=== PATIENT | male | born 1970 | race Caucasian/White ===

== ENCOUNTER 2016-06-25 08:42 | Inpatient (IN) | payer BC, OTHER ==
[~2016-06-25] VITALS: Ht 185.4 cm; Wt 66.7 kg
--- NOTE | 2016-06-27 13:15 | NUR ---
PRE ADMISSION NOTE: 45 yo male presents to [facility] with Methamphetamine dependence. Pt states smokes "3-4 hits" every morning. Pt is alert and oriented X4. Color good, skin warm and dry. Respirations even and unlabored. B/P 110/67 P: 75 RR 18 Pulse OX: 97% T 98.2 Pt states used to drink, but now attends AA on a regular basis. NKA Skin intact.
[2016-06-27 13:45] VITALS: BP 110/67
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
[2016-06-27] MEDS: QUETIAPINE FUMARATE 25 MG TABLET PO SCH ×3 (14:44→21:00)
[2016-06-27] MEDS ORDERED: METHOCARBAMOL 750 MG TABLET PO PRN (15:00)
[2016-06-27] MEDS ORDERED: CLONIDINE HCL 0.1 MG TABLET PO PRN (15:00)
[2016-06-27] MEDS ORDERED: MAG HYDROX/AL HYDROX/SIMETH 30 ML LIQUID UDC PO PRN (15:00)
[2016-06-27] MEDS ORDERED: IBUPROFEN 600 MG TABLET PO PRN (15:00)
[2016-06-27] MEDS ORDERED: ACETAMINOPHEN 325 MG TABLET PO PRN (15:00)
[2016-06-27] MEDS ORDERED: DICYCLOMINE HCL 20 MG TABLET PO PRN (15:00)
[2016-06-27] MEDS ORDERED: MAGNESIUM HYDROXIDE 30 ML LIQUID UDC PO PRN (15:00)
[2016-06-27] MEDS ORDERED: HYDROXYZINE PAMOATE 25 MG CAPSULE PO PRN (15:00)
[2016-06-27] MEDS ORDERED: diphenhydrAMINE 50 MG CAPSULE PO PRN (15:00)
[2016-06-27] MEDS ORDERED: LOPERAMIDE HCL 2 MG CAPSULE PO PRN ×2 (15:00)
[2016-06-27] MEDS ORDERED: MIRALAX 17 GM POWD.PACK PO PRN (15:00)
[2016-06-27 15:13] LABS: *AMPHETAMINE, URINE POSITIVE (NEGATIVE); *BARBITURATE, URINE NEGATIVE (NEGATIVE); *CANNABINOID, URINE NEGATIVE (NEGATIVE); *COCCAINE, URINE NEGATIVE (NEGATIVE); *OPIATE, URINE NEGATIVE (NEGATIVE); *PHENCYCLIDINE SCREEN,URINE NEGATIVE (NEGATIVE)
[2016-06-27 17:40] LABS: BASOPHILS # (AUTO) 0.1 K/uL (0.0-8.0); BASOPHILS % (AUTO) 0.8 % (0.0-2.0); EOSINOPHILS # (AUTO) 0.2 K/uL (0.0-0.7); EOSINOPHILS % (AUTO) 3.3 % (0.0-7.0); HEMOGLOBIN 13.3 G/DL (14.0-18.0); LYMPHOCYTES # (AUTO) 2.5 K/UL (0.8-4.8); LYMPHOCYTES % (AUTO) 33.2 % (20.5-51.5); MEAN CORPUSCULAR HEMOGLOBIN 30.1 UUG (27.0-31.0); MEAN CORPUSCULAR HGB CONC 34 g/dL (32.0-37.0); NEUTROPHILS # (AUTO) 3.8 K/UL (1.8-8.9); NEUTROPHILS % (AUTO) 49.7 % (38.5-71.5); PLATELET COUNT (AUTO) 261 K/UL (150-450); RED BLOOD CELL COUNT(AUTO) 4.43 MIL/UL (4.7-6.1); RED CELL DISTRIBUTION WIDTH 12.8 % (11.5-14.5); WHITE BLOOD COUNT (AUTO) 7.6 K/UL (4.0-11.2)
[2016-06-27 18:03] LABS: ALANINE AMINOTRANSFERASE 20 U/L (16-63); ALBUMIN 3.6 g/dL (3.4-5.0); ALKALINE PHOSPHATASE 46 U/L (50-136); ASPARTATE AMINOTRANSFERASE 17 U/L (15-37); BILIRUBIN,TOTAL 0.2 mg/dL (0.2-1.0); CALCIUM 8.8 mg/dL (8.5-10.1); CARBON DIOXIDE 30 mmol/L (21-32); CHLORIDE 106 mmol/L (98-107); CREATININE 0.8 mg/dL (0.6-1.3); GFR 106 mL/min (>60); GLUCOSE 97 mg/dL (74-106); MAGNESIUM 2.2 mg/dL (1.8-2.4); POTASSIUM 4.3 mmol/L (3.5-5.1); SODIUM SERUM 144 mmol/L (136-145); TOTAL PROTEIN, SERUM 6.2 g/dL (6.4-8.2); UREA NITROGEN, BLOOD 13 mg/dL (7-18)
[2016-06-27 18:04] LABS: ETHANOL < 3 MG/DL (0-0)
[2016-06-27 18:17] VITALS: BP 110/67
[2016-06-27 18:23] LABS: HIV-1 p24 ANTIGEN NON REACTIVE (NONREACTIVE); HIV-1/2 ANTIBODY NON REACTIVE (NONREACTIVE)
--- NOTE | 2016-06-27 18:51 | NUR ---
END OF SHIFT NOTE: Report given to shift coordinator nurse . 45 yo male admitted [facility] for methamphetamine dependence. Pt is alert and oriented X4. Color good, skin warm and dry. Respirations even and unlabored. Vital signs have remained stable throughout shift . Pt started on Seroquel by Dr. Loya. Safety precautions observed. Call light within reach.
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
[2016-06-27 20:00] VITALS: BP 91/52
[2016-06-28] VITALS: BP 93/54
[2016-06-28 04:00] VITALS: BP 98/58
--- NOTE | 2016-06-28 07:16 | NUR ---
END OF SHIFT NOTE: Patient is a 45 y/o male admitted yesterday for Meth dependence. Patient remained stable and vitals remained WNL. Pt slept with a total of 9 hours throughout the night. No PRN medications administered during my shift. Pt refused scheduled Seroquel at 2100. Pt stated that he does not need it at that time. Pt still asleep at this time. No shortness of breath noted. Respiration even & unlabored. No s/s of distress noted. Pt consumed 355ml of fluids. Voided 1x with no bowel movement. All needs attended & met. Safety precautions are in place. Will endorse pt to day shift nurse.
[2016-06-28 08:00] VITALS: BP 101/66
--- NOTE | 2016-06-28 08:00 | NUR ---
START OF SHIFT Received pt this am Aox4. Patient eating breakfast in bed and states he feels good and better this morning. Pt on PRNs only. No PRNs given during awake overnight counselor. Pt refused his Seroquel last shift. He slept 9 hours. Pt reports he wants to go to groups. Encouraged pt to notify RN if s/s of w/d increase. Will provide safe and supportive environment. Will monitor
[2016-06-28] MEDS ORDERED: TUBERCULIN,PURIF.PROT.DERIV. 5 TU/0.1 ML TEST ID ONE (09:00)
[2016-06-28] MEDS ORDERED: MULTIVITAMINS,THERAPEUTIC TABLET PO SCH (09:00)
[2016-06-28] MEDS: QUETIAPINE FUMARATE 25 MG TABLET PO SCH ×2 (09:17→12:40)
[2016-06-28 12:00] VITALS: BP 123/67
[2016-06-28] MEDS ORDERED: QUET25TA PO (15:20)
[2016-06-28 16:16] LABS: *AMPHETAMINE, URINE NEGATIVE (NEGATIVE); *BARBITURATE, URINE NEGATIVE (NEGATIVE); *CANNABINOID, URINE NEGATIVE (NEGATIVE); *COCCAINE, URINE NEGATIVE (NEGATIVE); *OPIATE, URINE NEGATIVE (NEGATIVE); *PHENCYCLIDINE SCREEN,URINE NEGATIVE (NEGATIVE)
--- NOTE | 2016-06-28 16:48 | NUR ---
DISCHARGE NOTE Pt is in stable condition. Vital signs WNL. Pt is alert and oreinted x4. SKin is intact. Pt denies any suicidal or homicidal ideations. All discharge paperwork completed dated and signed. Pt educated about discharge instructinos, what to do after discharge and when to notify MD. Pt verbalized understanding of all info given. Pt was discharged from [facility] on 06/29/16 at 1647. Pt left building with all of his belongings. Pt did not bring any meds to unit. MD as been contacted and notified of patient discharge
== END 2016-06-28 16:47 | disposition other institution (70) | DRG 895 ==
LOC: SRC 06-27 12:21
PROVIDERS: ADMIT Internal Medicine; ATTEND Internal Medicine
PROC: HZ2ZZZZ Detoxification Services for Substance Abuse Treatment (ICD-10-PCS; principal; 2016-06-27)
PROC: HZ41ZZZ Group Counseling for Substance Abuse Treatment, Behavioral (ICD-10-PCS; 2016-06-28)
DX: F15.221 Other stimulant dependence with intoxication delirium (principal); Z87.820 Personal history of traumatic brain injury; Z81.8 Family history of other mental and behavioral disorders; Z81.4 Family history of other substance abuse and dependence; F17.210 Nicotine dependence, cigarettes, uncomplicated; F41.9 Anxiety disorder, unspecified; F39 Unspecified mood [affective] disorder; D64.9 Anemia, unspecified
CPT/HCPCS: 71010; 80307; 80324; 83735; 85025; 86592; 86705; 86803; 87340; 87806; G6040-TC